=== PATIENT | female | born 1965 | race Caucasian/White ===

== ENCOUNTER 2022-05-14 11:55 | Emergency (ER) | payer OTHER | END 2022-05-14 14:23 | disposition home or self-care (01) | LOC: FER 11:55 | DX: T24.002A Burn of unspecified degree of unspecified site of left lower limb, except ankle and foot, initial encounter (principal); I11.0 Hypertensive heart disease with heart failure; I50.9 Heart failure, unspecified; F17.290 Nicotine dependence, other tobacco product, uncomplicated; Z23 Encounter for immunization; Z28.310 Unvaccinated for COVID-19; Z79.899 Other long term (current) drug therapy; Z88.8 Allergy status to other drugs, medicaments and biological substances; X08.8XXA Exposure to other specified smoke, fire and flames, initial encounter; Y93.89 Activity, other specified | CPT/HCPCS: 73590; 90715 ==

== ENCOUNTER 2022-05-14 15:04 | Emergency (ER) | payer OTHER ==
[2022-05-14 15:43] LABS: ALBUMIN 3.2 g/dL (3.4-5.0); BILIRUBIN - TOTAL 1.1 mg/dL (0.2-1.0); BUN/CREAT RATIO (CALC) 11.6 RATIO; CREATININE 1.21 mg/dL (0.51-0.95); GLOBULIN (CALCULATION) 3.2 g/dL; POTASSIUM 3.4 mmol/L (3.5-5.1); TOTAL PROTEIN 6.4 g/dL (6.4-8.2)
[2022-05-14 16:17] LABS: BASOPHIL 0.8 % (0-2); EOSINOPHIL 0.4 & (0-5); HCT 43.4 % (37.0-47.0); HGB 14.2 g/dl (12.5-16.0); MCH 29.5 pg (25.0-31.0); MCHC 32.7 g/dL (32.0-36.0); MONOCYTE 9.6 % (0-12); MPV 11.4 fL (6.0-9.5); NEUTROPHIL 55.8 % (41-80); PLT 142 K/uL (150-400); RBC 4.82 M/uL (4.20-5.40); RDW 14.3 % (11.5-14.0); WBC 2.61 K/uL (4.0-10.5)
[2022-05-14 16:54] LABS: INR 2.23 (0.9-1.2); PROTHROMBIN TIME 23.8 SECONDS (11.8-13.4)
[2022-05-14 18:06] LABS: LACTIC ACID 1.9 mmol/L (0.4-1.9)
[2022-05-14 18:17] LABS: CORONAVIRUS 2019 SARS-COV-2 NEGATIVE (NEGATIVE); INFLUENZA A NAA NEGATIVE (NEGATIVE)
[2022-05-14 18:29] LABS: BILIRUBIN NEGATIVE (NEGATIVE); BLOOD NEGATIVE Ery/uL (NEGATIVE); CLARITY CLEAR (CLEAR); COLOR YELLOW (YELLOW); GLUCOSE (U) NORMAL (NORMAL); LEUKOCYTES NEGATIVE Leu/uL (NEGATIVE); NITRITE NEGATIVE (NEGATIVE); PROTEIN NEGATIVE (NEGATIVE); SPECIFIC GRAVITY <=1.005 (1.001-1.030)
[2022-05-14 18:32] LABS: AMPHETAMINES POSITIVE (NEGATIVE); BARBITURATES NEGATIVE (NEGATIVE); ECSTASY (MDMA) NEGATIVE (NEGATIVE); MARIJUANA (THC) NEGATIVE (NEGATIVE); METHADONE NEGATIVE (NEGATIVE); OPIATES POSITIVE (NEGATIVE); OXYCODONE NEGATIVE (NEGATIVE)
[2022-05-14 18:38] LABS: MUCOUS TRACE; URINARY RBC RARE
[2022-05-14 18:39] LABS: BACTERIA TRACE
[2022-05-14 19:57] LABS: BUN/CREAT RATIO (CALC) 13.3 RATIO; CREATININE 0.98 mg/dL (0.51-0.95); PHOSPHORUS 2.9 mg/dL (2.6-4.7); POTASSIUM 3.3 mmol/L (3.5-5.1)
[2022-05-14 20:31] LABS: BILIRUBIN - TOTAL 0.7 mg/dL (0.2-1.0); TOTAL PROTEIN 4.8 g/dL (6.4-8.2)
[2022-05-14 20:35] LABS: ALBUMIN 2.4 g/dL (3.4-5.0); GLOBULIN (CALCULATION) 2.4 g/dL
== END 2022-05-14 21:55 | disposition other institution (70) ==
LOC: FER 15:04
PROVIDERS: Emergency Medicine; Internal Medicine
DX: R41.82 Altered mental status, unspecified (principal); I95.9 Hypotension, unspecified; R79.89 Other specified abnormal findings of blood chemistry; I25.10 Atherosclerotic heart disease of native coronary artery without angina pectoris; I11.0 Hypertensive heart disease with heart failure; I50.9 Heart failure, unspecified; F17.290 Nicotine dependence, other tobacco product, uncomplicated; Z20.822 Contact with and (suspected) exposure to COVID-19; Z28.310 Unvaccinated for COVID-19; Z88.8 Allergy status to other drugs, medicaments and biological substances; Z79.899 Other long term (current) drug therapy
CPT/HCPCS: 36415; 36600; 70450; 70486; 71045; 71260; 72125; 80048; 80053; 80305; 81001; 82040; 82140; 82247; 82550; 82803; 83605; 83690; 84075; 84100; 84155; 84439; 84443; 84450; 84460; 84484; 85025; 85610; 85730; 87040; 90471; 93005; 96374; 96375; G0480; J0171; J0461; J0610; J0692; J1610; J2310; J3475; J7030; Q9967; U0002